=== PATIENT | female | born 1965 | race Caucasian/White ===

== ENCOUNTER → 2021-10-26 | Outpatient (CLI) | payer OTHER ==
--- NOTE | 2021-10-26 14:16 | P.BASOAP ---
Subjective Progress Note Date: 10/26/21 Principal diagnosis: morbid obesity Patient returns for reevaluation. Patient has had poor follow-up over the years. Patient was last seen August 2017. Prior to that hadn't been seen for 7 years. Since her last visit her weight has not changed much. She has however felt a pressure-like pain at times in the epigastric region. She thinks her port may have moved. She feels some restriction. Occasional episodes of dysphagia and regurgitation. Patient would like to have the band fluid removed. She is considered band removal. Objective - Exam Abdomen: Soft, nontender, nondistended Assessment/Plan (1) Morbid obesity Narrative/Plan: 56-year-old female with history of previous lap band. Patient would like to have the fluid removed which is reasonable. Band accessed sterilely with Villegas needle. Able to remove 9 mL. Patient had slight discomfort at the higher amounts and so I decided on removing 7 mL total. We'll schedule patient for esophagram to evaluate for prolapse or erosion. Will call patient with upper GI results. Following that we will proceed with band removal. Plan: Date: Initial Weight: Initial BMI: Current Weight: Current BMI: Type of Surgery: Total Volume in Band: Previous Volume: Volume Removed: Volume Added: Band Size:
[2021-10-26 14:46] VITALS: BP 130/85; PULSE 110; TEMP 98.2; BMI 43.2
== END ==
LOC: BARWHC3 13:37
PROVIDERS: ATTEND Surgery
DX: E66.01 Morbid (severe) obesity due to excess calories (principal); Z98.84 Bariatric surgery status; Z68.41 Body mass index [BMI] 40.0-44.9, adult
CPT/HCPCS: 99212

== ENCOUNTER → 2022-02-17 | Outpatient (CLI) | payer OTHER ==
--- NOTE | 2022-02-17 16:08 | CONS ---
CONSULTATION DATE OF SERVICE: 02/17/2022 56-year-old lady has been [facility] for obstructive sleep apnea- hypopnea syndrome. HISTORY OF PRESENT ILLNESS SLEEP-WAKE EVALUATION: Patient has history of obstructive sleep apnea for about 10 years. She continued to use her CPAP equipment every night. Needs some new supplies for her CPAP machine. SLEEP SCHEDULE: From midnight until 7 a.m. FALLING ASLEEP: No problems with falling asleep. No TV in bedroom. DURING SLEEP: She usually sleeps on the side position. With the machine she maybe wakes up once with nocturia. No snoring with the machine. No significant excessive daytime sleepiness. Byron Sleepiness Scale is 7. DURING THE DAY/SLEEP WAKE EVALUATION: Occasionally afternoon, though, although she may take one nap. The patient drinks 2-3 caffeinated beverages during the day. No history of hypnagogic hallucinations, sleep paralysis or cataplexy. I checked the patient's CPAP unit. Pressure is 8 cm of water. Usage is 18/30 nights. Average 4.5 hours per night. Leak is 22 L/minute is borderline. Apnea-hypopnea index is 3.3, which is in normal range. PAST MEDICAL HISTORY: Positive for hypertension, anxiety, pre menopause. PAST SURGICAL HISTORY: Lap band surgery 2008. MEDICATIONS: Lisinopril 10 mg once a day, venlafaxine 150 mg once a day. SOCIAL HISTORY: Negative for smoking or using alcohol. FAMILY HISTORY: Positive for stroke, hyperlipidemia, cancer, diabetes. REVIEW OF SYSTEMS: Occasional awakenings from sleep. PHYSICAL EXAMINATION: GENERAL: lady without distress. BP 124/76, HR 92, RR 16, height 5 feet 6 inches, weight 243, body mass index 39.2, temperature 98.4, oxygen saturation at room air 98%. Oropharynx: Low position of soft palate. Neck 15 inches in circumference. NECK: Supple, no JVD. Thyroid is not palpable. LUNGS: Clear to percussion and to auscultation. Good air exchange. No wheezing or rhonchi. HEART: S1, S2 regular. No murmurs, gallops, or rubs. ABDOMEN: Slightly obese. Soft and nontender. Bowel sounds are present. No organomegaly appreciated. EXTREMITIES: No clubbing or cyanosis. CONFERENCE COORDINATOR: Awake, alert, and oriented X3. Cranial nerves 2 to 7 intact. There is no fasciculation or atrophy. noted. No focal deficits observed. PLAN: 1. Prescription for all necessary CPAP supplies, including mask, tube, filters and chamber for humidifier was written. 2. Patient should continue to use CPAP equipment every night for the whole night. 3. Losing weight. 4. Sleep hygiene with regular time in bed for at least 7-1/2 to 8 hours. 5. No driving if feeling sleepiness. 6. Follow-up visit in 6 months or earlier if patient has any problems. Thank you very much for allowing me to participate in management of your patient. Sincerely, Sohail Saucedo MD, PhD, FAASM Diplomat of [employer] Sleep Medicine [employer] Director Of Pupil Personnel Program of [facility] [place] MMODL / BONG: [id number] /
--- NOTE | 2022-03-03 13:58 | CONS ---
CONSULTATION ADDENDUM TO CONSULTATION: DATE OF CONSULTATION: 02/17/2022 IMPRESSIONS: 1. Obstructive sleep apnea-hypopnea syndrome. 2. Hypertension. 3. Obesity; body mass index 39.2. 4. Anxiety. 5. Perimenopause. 6. Status post lap band surgery in 2008. Sincerely, Sohail Saucedo MD, PhD, FAASM Diplomat of [employer] Sleep Medicine [employer] of [employer] Bookkeeping Clerk of [facility] [place] MMODL / IJN: [id number] /
== END | disposition home or self-care (01) ==
LOC: SLEEP 14:00
PROVIDERS: ATTEND Internal Medicine
DX: G47.33 Obstructive sleep apnea (adult) (pediatric) (principal); I10 Essential (primary) hypertension
CPT/HCPCS: 99211

== ENCOUNTER → 2022-02-17 | Outpatient (CLI) | payer OTHER ==
[2022-02-17 23:18] LABS: ALT 21 U/L (8-44); AST 20 U/L (13-35); African American GFR (CKD) 96.2 (60.0-200.0); Albumin 4.3 g/dL (3.8-4.9); Albumin/Globulin Ratio 2.15 (1.60-3.17); Alkaline Phosphatase 95 U/L (41-126); Blood Urea Nitrogen 17.2 mg/dL (9.0-27.0); Calcium 9.3 mg/dL (8.7-10.3); Carbon Dioxide 26.1 mmol/L (20.0-27.5); Chloride 102 mmol/L (96-109); Chol/HDL Ratio 3.53 Ratio; Follicle Stimulating Hormone 56.6 mIU/mL; Glucose 89 mg/dL (70-110); LDL Cholesterol,Calculated 133.6 mg/dL (0.0-131.0); Potassium 4.4 mmol/L (3.5-5.5); Sodium 139 mmol/L (135-145); Total Protein 6.3 g/dL (6.2-8.2); VLDL Calculation 11.12 mg/dL (5.00-40.00)
[2022-02-17 23:27] LABS: Basophils # (A) 0.04 X 10*3/uL (0.00-0.10); Basophils % (A) 0.7 %; Eosinophils # (A) 0.18 X 10*3/uL (0.04-0.35); Eosinophils % (A) 3.3 %; HCT 43.5 % (37.2-46.3); HGB 13.4 g/dL (12.0-15.0); Immature Grans, Automated 0.2 %; Lymphocytes # (A) 1.69 X 10*3/uL (0.90-5.00); MCH 29.7 pg (27.0-32.0); MCHC 30.8 g/dL (32.0-37.0); MCV 96.5 fL (80.0-97.0); Mean Platelet Volume 9.3 fL (9.5-12.2); Monocytes # (A) 0.41 X 10*3/uL (0.20-1.00); Monocytes % (A) 7.5 %; NRBC Per 100 WBC 0 /100 WBCS (0.0-0.0); Neutrophils # (A) 3.13 X 10*3/uL (1.80-7.70); Neutrophils % (A) 57.3 %; Platelet Count 327 X 10*3/uL (140-440); RBC 4.51 X 10*6/uL (4.10-5.20); RDW 13.5 % (11.5-14.5); WBC 5.46 X 10*3/uL (4.50-10.00)
[2022-02-17 23:37] LABS: Luteinizing Hormone 43.9 mIU/mL
== END | disposition home or self-care (01) ==
LOC: LABWHC1 17:19
PROVIDERS: ATTEND Family Medicine
DX: Z98.84 Bariatric surgery status (principal); V65 Occupant of heavy transport vehicle injured in collision with railway train or railway vehicle; V20.2 Unspecified motorcycle rider injured in collision with pedestrian or animal in nontraffic accident
CPT/HCPCS: 36415; 80053; 80061; 83001; 83002; 84439; 84443; 85025